=== PATIENT | male | born 1995 | race Caucasian/White ===

== ENCOUNTER 2019-01-09 06:49 | Emergency (ER) | payer BC ==
[2019-01-09] MEDS ORDERED: Sodium Chloride 0.9% 10 ML Syringe FLUSH PRN (07:32)
[2019-01-09] MEDS ORDERED: Famotidine 20 MG/2 ML SDV IVPUSH ONE (07:32)
[2019-01-09] MEDS ORDERED: Sodium Chloride 0.9% 2.5 ML Syringe FLUSH PRN (07:32)
[2019-01-09] MEDS ORDERED: Sodium Chloride 0.9% 1,000 ML IV ONE (07:32)
--- NOTE | 2019-01-09 07:45 | EDM.PDOC ---
ED HPI GENERAL MEDICAL PROBLEM - General Chief Complaint: Gastrointestinal Problem Stated Complaint: POSSIBLE HERNIA, VOMITING, DIARRHEA Time Seen by Provider: 01/09/19 07:07 Source of Information: Reports: Patient History Limitations: Reports: No Limitations - History of Present Illness INITIAL COMMENTS - FREE TEXT/NARRATIVE: History of present illness: []Patient developed epigastric pain over the weekend that has been worsening with vomiting and black diarrhea. Patient denies any fevers, chills has had a chronic cough but denies any shortness of breath or chest pain. Review of systems: As per history of present illness and below otherwise all systems reviewed and negative. Past medical history: As per history of present illness and as reviewed below otherwise noncontributory. Surgical history: As per history of present illness and as reviewed below otherwise noncontributory. Social history: No reported history of drug or alcohol abuse. Family history: As per history of present illness and as reviewed below otherwise noncontributory. Physical exam: General: Well developed, well nourished in NAD HEENT: Atraumatic, normocephalic, pupils reactive, negative for conjunctival pallor or scleral icterus, mucous membranes moist, throat clear, neck supple, nontender, trachea midline. Lungs: Clear to auscultation, breath sounds equal bilaterally, chest nontender. Heart: S1S2, regular, negative for clicks, rubs, or JVD. Abdomen: NABS, Soft, nondistended, epigastric tenderness no rebound or guarding. Negative for masses or hepatosplenomegaly. Negative for costovertebral tenderness. Pelvis: Stable nontender. Genitourinary: Deferred. Rectal: Deferred. Extremities: Atraumatic, negative for cords or calf pain. Neurovascular unremarkable. Neuro: Awake, alert, oriented. Cranial nerves II through XII unremarkable. Cerebellum unremarkable. Motor and sensory unremarkable throughout. Exam nonfocal. Skin:warm and dry Diagnostics: CBC, chemistry, lipase Therapeutics: IV hydration, Pepcid ED Course: sTable Impression: Mild pancreatitis Prescriptions: Zofran Plan: Take Prilosec as directed, follow up with your primary care physician, return to ER if symptoms worsen or change. Definitive disposition and diagnosis as appropriate pending reevaluation and review of above. backpain/epigastric Pain Score (Numeric/FACES): 8 - Related Data Allergies Allergy/AdvReac Type Severity Reaction Status Date / Time Penicillins Allergy Cannot Verified 01/09/19 07:18 Remember Home Meds: Home Meds Ondansetron HCl [Zofran] 4 mg PO Q4HR #12 tablet 01/09/19 [Rx] Past Medical History - Past Health History Medical/Surgical History: Denies Medical/Surgical History Social & Family History - Tobacco Use Years of Tobacco use: 8 Packs/Tins Daily: 1 - Caffeine Use Caffeine Use: Reports: Energy Drinks - Recreational Drug Use Recreational Drug Use: No ED ROS GENERAL - Review of Systems Review Of Systems: ROS reveals no pertinent complaints other than HPI. ED EXAM, GI/ABD - Physical Exam Exam: See Below (See history of present illness) Course - Vital Signs Last Recorded V/S: Last Vital Signs Temp 97.4 F 01/09/19 07:19 Pulse 92 01/09/19 07:19 Resp 16 01/09/19 07:19 BP 137/84 01/09/19 07:19 Pulse Ox 97 01/09/19 07:19 - Orders/Labs/Meds Orders: Active Orders 24 hr Category Date Time Status Sodium Chloride 0.9% [Saline Flush] Med 01/09/19 07:32 Active 10 ml FLUSH ASDIRECTED PRN Sodium Chloride 0.9% [Saline Flush] Med 01/09/19 07:32 Active 2.5 ml FLUSH ASDIRECTED PRN Saline Lock Insert [OM.PC] Stat Oth 01/09/19 07:32 Ordered Medication Orders Sodium Chloride (Saline Flush) 10 ml FLUSH ASDIRECTED PRN PRN Reason: Keep Vein Open Last Admin: 01/09/19 07:46 Dose: 10 ml Sodium Chloride (Saline Flush) 2.5 ml FLUSH ASDIRECTED PRN PRN Reason: Keep Vein Open Last Admin: 01/09/19 07:46 Dose: 2.5 ml Labs: Laboratory Tests 01/09/19 01/09/19 Range/Units 07:45 07:45 WBC 5.99 (4.0-11.0) K/uL RBC 4.90 (4.50-5.90) M/uL Hgb 15.3 (13.0-17.0) g/dL Hct 43.6 (38.0-50.0) % MCV 89.0 (80.0-98.0) fL MCH 31.2 (27.0-32.0) pg MCHC 35.1 (31.0-37.0) g/dL RDW Std Deviation 41.7 (28.0-62.0) fl RDW Coeff of Pillo 13 (11.0-15.0) % Plt Count 252 (150-400) K/uL MPV 10.10 (7.40-12.00) fL Neut % (Auto) 47.7 L (48.0-80.0) % Lymph % (Auto) 37.1 (16.0-40.0) % Allen % (Auto) 10.9 (0.0-15.0) % Eos % (Auto) 4.0 (0.0-7.0) % Baso % (Auto) 0.3 (0.0-1.5) % Neut # (Auto) 2.9 (1.4-5.7) K/uL Lymph # (Auto) 2.2 (0.6-2.4) K/uL Allen # (Auto) 0.7 (0.0-0.8) K/uL Eos # (Auto) 0.2 (0.0-0.7) K/uL Baso # (Auto) 0.0 (0.0-0.1) K/uL Nucleated RBC % 0.0 /100WBC Nucleated RBCs # 0 K/uL Sodium 140 (136-148) mmol/L Potassium 3.4 L (3.5-5.1) mmol/L Chloride 103 (98-107) mmol/L Carbon Dioxide 26.9 (21.0-32.0) mmol/L BUN 10 (7.0-18.0) mg/dL Creatinine 1.0 (0.8-1.3) mg/dL Est Cr Clr Drug Dosing 112.10 mL/min Estimated GFR (MDRD) > 60.0 ml/min Glucose 97 (74-106) mg/dL Calcium 9.1 (8.5-10.1) mg/dL Total Bilirubin 0.6 (0.2-1.0) mg/dL AST 27 (15-37) IU/L ALT 20 (14-63) IU/L Alkaline Phosphatase 58 (46-116) U/L Total Protein 7.6 (6.4-8.2) g/dL Albumin 3.9 (3.4-5.0) g/dL Globulin 3.7 (2.6-4.0) g/dL Albumin/Globulin Ratio 1.1 (0.9-1.6) Lipase 480 H (73-393) U/L Meds: Medications Generic Name Dose Route Start Last Admin Trade Name Freq PRN Reason Stop Dose Admin Sodium Chloride 10 ml 01/09/19 07:32 01/09/19 07:46 Saline Flush FLUSH 10 ml ASDIRECTED PRN Administration Keep Vein Open Sodium Chloride 2.5 ml 01/09/19 07:32 01/09/19 07:46 Saline Flush FLUSH 2.5 ml ASDIRECTED PRN Administration Keep Vein Open Discontinued Medications Generic Name Dose Route Start Last Admin Trade Name Freq PRN Reason Stop Dose Admin Famotidine 20 mg 01/09/19 07:32 01/09/19 07:45 Pepcid IVPUSH 01/09/19 07:33 20 mg ONETIME ONE Administration Sodium Chloride 1,000 mls @ 999 mls/hr 01/09/19 07:32 01/09/19 07:45 Normal Saline IV 01/09/19 08:32 999 mls/hr .Bolus ONE Administration Departure - Departure Time of Disposition: 08:44 Disposition: Home, Self-Care 01 Condition: Good Clinical Impression: Pancreatitis - Discharge Information *PRESCRIPTION DRUG MONITORING PROGRAM REVIEWED*: No *COPY OF PRESCRIPTION DRUG MONITORING REPORT IN PATIENT HETAL: No Prescriptions: Ondansetron HCl [Zofran] 4 mg PO Q4HR #12 tablet Referrals: PCP,None [Primary Care Provider] - Forms: ED Department Discharge Additional Instructions: The following information is given to patients seen in the emergency department who are being discharged to home. This information is to outline your options for follow-up care. We provide all patients seen in our emergency department with a follow-up referral. The need for follow-up, as well as the timing and circumstances, are variable depending upon the specifics of your emergency department visit. If you don't have a primary care physician on staff, we will provide you with a referral. We always advise you to contact your personal physician following an emergency department visit to inform them of the circumstance of the visit and for follow-up with them and/or the need for any referrals to a consulting specialist. The emergency department will also refer you to a specialist when appropriate. This referral assures that you have the opportunity for follow-up care with a specialist. All of these measure are taken in an effort to provide you with optimal care, which includes your follow-up. Under all circumstances we always encourage you to contact your private physician who remains a resource for coordinating your care. When calling for follow-up care, please make the office aware that this follow-up is from your recent emergency room visit. If for any reason you are refused follow-up, please contact the [facility] Emergency Department at and asked to speak to the emergency department charge nurse. Take meds as directed, follow up with your primary care physician, return to ER if symptoms worsen or change. [facility] [address] [place] [id number] - My Orders Last 24 Hours: My Active Orders 01/09/19 07:32 Sodium Chloride 0.9% [Saline Flush] 10 ml FLUSH ASDIRECTED PRN Sodium Chloride 0.9% [Saline Flush] 2.5 ml FLUSH ASDIRECTED PRN Saline Lock Insert [OM.PC] Stat - Assessment/Plan Last 24 Hours: My Active Orders 01/09/19 07:32 Sodium Chloride 0.9% [Saline Flush] 10 ml FLUSH ASDIRECTED PRN Sodium Chloride 0.9% [Saline Flush] 2.5 ml FLUSH ASDIRECTED PRN Saline Lock Insert [OM.PC] Stat
[2019-01-09 08:28] LABS: CHLORIDE,CL 103 mmol/L (98-107); SODIUM,NA 140 mmol/L (136-148)
== END 2019-01-09 09:00 | disposition home or self-care (01) ==
LOC: MW.ED 06:49
DX: K85.90 Acute pancreatitis without necrosis or infection, unspecified (principal); F17.210 Nicotine dependence, cigarettes, uncomplicated; Z88.0 Allergy status to penicillin
CPT/HCPCS: 36415; 80053; 83690; 85025; 96361; 96374; 99284; J3490; J7040; 99283

== ENCOUNTER 2019-02-26 10:43 | Day surgery (SDC) | payer BC ==
[2019-02-26] MEDS ORDERED: Lactated Ringers 1,000 ML IV SCH ×3 (11:00→14:45)
[2019-02-26] MEDS ORDERED: Clindamycin Phosphate in D5W 600 MG in Premix Bag 1 BAG IV ONE ×2 (11:35)
--- NOTE | 2019-02-26 11:56 | PCM.SN ---
- Free Text/Narrative Note: pt seen, chart reviewed; trauma injury to L 4 th toe, or for revision amputation ; rb dw pt, pt concurred; proceed w surgery; [id number]
[2019-02-26] MEDS ORDERED: Sodium Chloride 0.9% 10 ML SDV IV PRN (12:02)
[2019-02-26] MEDS ORDERED: Sodium Chloride 0.9% 10 ML Syringe FLUSH PRN (12:02)
[2019-02-26] MEDS ORDERED: Sodium Chloride 0.9% 2.5 ML Syringe FLUSH PRN (12:02)
--- NOTE | 2019-02-26 12:02 | PCM.SN ---
- Free Text/Narrative Note: upon discharge, pt would be NWB on L foot, crutch walking, no sock, no shoe, only sandles X 2 weeks
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
[2019-02-26] MEDS ORDERED: Bupivacaine 0.25% 10 ML SDV ONE (12:24)
[2019-02-26 12:44] LABS: CHLORIDE,CL 106 mmol/L (98-107); SODIUM,NA 145 mmol/L (136-148)
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
[2019-02-26] MEDS ORDERED: Midazolam 1 MG/ML 2 ML SDV ONE (13:33)
--- NOTE | 2019-02-26 13:59 | PCM.PREANE ---
Preanesthetic Assessment - Anesthesia/Transfusion/Family Hx Anesthesia History: No Prior Anesthesia Family History of Anesthesia Reaction: No Transfusion History: No Prior Transfusion(s) - Review of Systems General: No Symptoms Pulmonary: No Symptoms Cardiovascular: No Symptoms Gastrointestinal: No Symptoms Neurological: Other (acute alcohol intoxication) Other: Reports: None - Physical Assessment NPO Status Date: 02/26/19 NPO Status Time: 05:00 O2 Sat by Pulse Oximetry: 96 Respiratory Rate: 20 Vital Signs: Last Vital Signs Temp 98.6 F 02/26/19 11:22 Pulse 98 02/26/19 11:22 Resp 20 02/26/19 11:22 BP 130/67 02/26/19 11:22 Pulse Ox 96 02/26/19 11:22 Height: 5 ft 8 in Weight: 77.519 kg ASA Class: 2E Mental Status: Alert & Oriented x3 Airway Class: Mallampati = 1 Dentition: Reports: Normal Dentition Thyro-Mental Finger Breadths: 3 Mouth Opening Finger Breadths: 3 ROM/Head Extension: Full Lungs: Clear to Auscultation, Normal Respiratory Effort Cardiovascular: Regular Rate, Regular Rhythm - Lab Values: Laboratory Last Values WBC 7.25 K/uL (4.0-11.0) 02/26/19 12:10 RBC 5.11 M/uL (4.50-5.90) 02/26/19 12:10 Hgb 16.3 g/dL (13.0-17.0) 02/26/19 12:10 Hct 45.9 % (38.0-50.0) 02/26/19 12:10 MCV 89.8 fL (80.0-98.0) 02/26/19 12:10 MCH 31.9 pg (27.0-32.0) 02/26/19 12:10 MCHC 35.5 g/dL (31.0-37.0) 02/26/19 12:10 RDW Std Deviation 42.3 fl (28.0-62.0) 02/26/19 12:10 RDW Coeff of Pillo 13 % (11.0-15.0) 02/26/19 12:10 Plt Count 340 K/uL (150-400) 02/26/19 12:10 MPV 9.80 fL (7.40-12.00) 02/26/19 12:10 Nucleated RBC % 0.0 /100WBC 02/26/19 12:10 Nucleated RBCs # 0 K/uL 02/26/19 12:10 Sodium 145 mmol/L (136-148) 02/26/19 12:10 Potassium 4.2 mmol/L (3.5-5.1) 02/26/19 12:10 Chloride 106 mmol/L (98-107) 02/26/19 12:10 Carbon Dioxide 25.7 mmol/L (21.0-32.0) 02/26/19 12:10 BUN 9 mg/dL (7.0-18.0) 02/26/19 12:10 Creatinine 1.1 mg/dL (0.8-1.3) 02/26/19 12:10 Est Cr Clr Drug Dosing 101.91 mL/min 02/26/19 12:10 Estimated GFR (MDRD) > 60.0 ml/min 02/26/19 12:10 Glucose 112 mg/dL (74-106) H 02/26/19 12:10 Calcium 8.9 mg/dL (8.5-10.1) 02/26/19 12:10 Ethyl Alcohol 144 mg/dL 02/26/19 12:10 - Allergies Allergies/Adverse Reactions: Allergies Allergy/AdvReac Type Severity Reaction Status Date / Time Penicillins Allergy Cannot Verified 02/26/19 11:27 Remember - Anesthesia Plan Free Text/Narrative:: Pt states he has been on a 3 day 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 No labs were able to be obtained from [facility]. Hemogram, BMP, and Alcohol level were drawn. Patients last PO alcohol intake was around 0400 this AM. Labs show current alcohol level 144. Pt is extremely nervous about going to sleep. Spinal anesthesia was explained and the patient agrees to proceed at this time. - Acknowledgements Anesthesia Type Planned: General Anesthesia, Spinal Pt an Appropriate Candidate for the Planned Anesthesia: Yes Alternatives and Risks of Anesthesia Discussed w Pt/Guardian: Yes Pt/Guardian Understands and Agrees with Anesthesia Plan: Yes PreAnesthesia Questionnaire - Past Health History Medical/Surgical History: Denies Medical/Surgical History HEENT History: Reports: None Cardiovascular History: Reports: None Respiratory History: Reports: Other (See Below) Other Respiratory History: Patient states every now and then he gets short of breath. Gastrointestinal History: Reports: None Genitourinary History: Reports: None Musculoskeletal History: Reports: Other (See Below) (Lt 4th toe traumatic amputation) Neurological History: Reports: None Psychiatric History: Reports: Anxiety Endocrine/Metabolic History: Reports: None Hematologic History: Reports: None Immunologic History: Reports: None Oncologic (Cancer) History: Reports: None Dermatologic History: Reports: None - Infectious Disease History Infectious Disease History: Reports: Mononucleosis - SUBSTANCE USE Tobacco Use Within Last Twelve Months: Snuff/Dip Second Hand Smoke Exposure: Yes Days Per Week of Alcohol Use: 1 Number of Drinks Per Day: 2 Total Drinks Per Week: 2 Recreational Drug Use History: No - HOME MEDS Home Medications: Home Meds . [No Known Home Meds] 02/26/19 [History] - CURRENT (IN HOUSE) MEDS Current Meds: Current Medications Lactated Ringer's (Ringers, Lactated) 1,000 mls @ 150 mls/hr IV ASDIRECTED FAISAL Last Admin: 02/26/19 11:36 Dose: 150 mls/hr Lactated Ringer's (Ringers, Lactated) 1,000 mls @ 150 mls/hr IV ASDIRECTED FAISAL Sodium Chloride (Saline Flush) 10 ml FLUSH ASDIRECTED PRN PRN Reason: Keep Vein Open Sodium Chloride (Saline Flush) 2.5 ml FLUSH ASDIRECTED PRN PRN Reason: Keep Vein Open Sodium Chloride (Normal Saline) 10 ml IV ASDIRECTED PRN PRN Reason: IV Use Discontinued Medications Bupivacaine HCl (Sensorcaine-Mpf 0.25%) Confirm Administered Dose 10 ml .ROUTE .STK-MED ONE Stop: 02/26/19 12:25 Clindamycin Phosphate 600 mg/ (Premix) 50 mls @ 100 mls/hr IV ONETIME ONE Stop: 02/26/19 12:04 Last Admin: 02/26/19 11:39 Dose: 100 mls/hr Midazolam HCl (Versed 1 Mg/Ml) Confirm Administered Dose 2 mg .ROUTE .STK-MED ONE Stop: 02/26/19 13:34
--- NOTE | 2019-02-26 14:27 | PCM.SN ---
- Free Text/Narrative Note: revision amputation to L 4th DIP joint; [id number]
--- NOTE | 2019-02-26 14:37 | PCM.OPNOTE ---
- General Post-Op/Procedure Note Date of Surgery/Procedure: 02/26/19 Operative Procedure(s): revision amputation to L 4th DIP joint toe Findings: revision amputation to L 4th toe at DIP joint, [id number] Pre Op Diagnosis: trauma injury to L 4 th toe Post-Op Diagnosis: Same Anesthesia Technique: Combo Spinal/Epidural Primary Surgeon: Saul Mercer Pathology: sent Complications: None Condition: Good Free Text/Narrative:: Intake & Output 02/25/19 02/26/19 02/26/19 22:59 06:59 14:59 Intake Total 50 Balance 50
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
--- NOTE | 2019-02-26 14:44 | PCM.POSTAN ---
POST ANESTHESIA ASSESSMENT - MENTAL STATUS Mental Status: Alert, Oriented - VITAL SIGNS Pulse Rate: 86 SaO2: 98 (RA) Resp Rate: 14 Blood Pressure: 107/68 - RESPIRATORY Respiratory Status: Respiratory Rate WNL, Airway Patent, O2 Saturation Stable - CARDIOVASCULAR CV Status: Pulse Rate WNL, Blood Pressure Stable - GASTROINTESTINAL GI Status: No Symptoms - PAIN Pain Score: 0 - POST OP HYDRATION Hydration Status: Adequate & Stable
--- NOTE | 2019-02-26 14:55 | OR ---
SURGEON: Saul Mercer MD DATE OF PROCEDURE: 02/26/2019 PREOPERATIVE DIAGNOSIS: Trauma injury to the left 4th toe. POSTOPERATIVE DIAGNOSIS: Trauma injury to the left 4th toe. PROCEDURE PERFORMED: Revision amputation of left 4th toe. PRIMARY SURGEON: Saul Mercer MD. COMPLICATIONS: None. FINDINGS: The distal phalanx looked like is broken into two pieces and it was removed at the DIP joint and it was then closed with a fish-mouth incision. PROCEDURE IN DETAIL: The patient was taken to operating room, placed in a supine position. Upon induction of spinal anesthesia, the patient's left lower extremity prepped and draped in sterile fashion. Time-out was being called, patient identified, antibiotic identified, procedure then started. A fish-mouth incision was made and developed a medial flap and a lateral flap and bone was removed all the way to the DIP joint and it was then closed with simple interrupted using 3-0 Ethilon followed by appropriate dressing. The patient was then transferred to recovery in hemodynamically stable condition. The patient tolerated the procedure well. There were no intraoperative complications. Dr. Mercer was present throughout procedure. JENNIFER / ANDREW /[id number] KIRA
[2019-02-26] MEDS: Lactated Ringers 1,000 ML IV SCH (15:00)
[2019-02-26] MEDS: Clindamycin Phosphate in D5W 300 MG in Premix Bag 1 BAG IV SCH ×4 (17:06→23:35)
[2019-02-26] MEDS: Acetaminophen/oxyCODONE 325-5 MG Tab PO PRN (21:56)
[2019-02-27] MEDS: Lactated Ringers 1,000 ML IV SCH (01:57)
[2019-02-27] MEDS: Acetaminophen/oxyCODONE 325-5 MG Tab PO PRN ×2 (01:59→07:47)
[2019-02-27] MEDS: Clindamycin Phosphate in D5W 300 MG in Premix Bag 1 BAG IV SCH ×2 (05:19)
--- NOTE | 2019-02-27 09:29 | PCM48HPAN ---
Post Anesthesia Note - EVALUATION WITHIN 48HRS OF ANESTHETIC Vital Signs in Normal Range: Yes Patient Participated in Evaluation: Yes Respiratory Function Stable: Yes Airway Patent: Yes Cardiovascular Function Stable: Yes Hydration Status Stable: Yes Pain Control Satisfactory: Yes Nausea and Vomiting Control Satisfactory: Yes Mental Status Recovered: Yes Pulse Rate: 80 SaO2: 97 Resp Rate: 17 Blood Pressure: 150/67
--- NOTE | 2019-02-27 10:49 | PCM.SURGPN ---
- General Info Date of Service: 02/27/19 Functional Status: Reports: Pain Controlled (pt voided, pain in good control, jhony po diet, pt taught crutch walking) - Review of Systems General: Reports: No Symptoms - Patient Data Vitals - Most Recent: Last Vital Signs Temp 97.8 F 02/27/19 07:16 Pulse 80 02/27/19 09:29 Resp 17 02/27/19 09:29 BP 150/67 H 02/27/19 09:29 Pulse Ox 97 02/27/19 09:29 Weight - Most Recent: 170 lb 14.4 oz I&O - Last 24 Hours: Intake & Output 02/26/19 02/27/19 02/27/19 22:59 06:59 14:59 Intake Total 724 2086 Output Total 1250 Balance 724 836 Lab Results Last 24 Hrs: Laboratory Results - last 24 hr 02/26/19 02/26/19 Range/Units 12:10 12:10 WBC 7.25 (4.0-11.0) K/uL RBC 5.11 (4.50-5.90) M/uL Hgb 16.3 (13.0-17.0) g/dL Hct 45.9 (38.0-50.0) % MCV 89.8 (80.0-98.0) fL MCH 31.9 (27.0-32.0) pg MCHC 35.5 (31.0-37.0) g/dL RDW Std Deviation 42.3 (28.0-62.0) fl RDW Coeff of Pillo 13 (11.0-15.0) % Plt Count 340 (150-400) K/uL MPV 9.80 (7.40-12.00) fL Nucleated RBC % 0.0 /100WBC Nucleated RBCs # 0 K/uL Sodium 145 (136-148) mmol/L Potassium 4.2 (3.5-5.1) mmol/L Chloride 106 (98-107) mmol/L Carbon Dioxide 25.7 (21.0-32.0) mmol/L BUN 9 (7.0-18.0) mg/dL Creatinine 1.1 (0.8-1.3) mg/dL Est Cr Clr Drug Dosing 101.91 mL/min Estimated GFR (MDRD) > 60.0 ml/min Glucose 112 H (74-106) mg/dL Calcium 8.9 (8.5-10.1) mg/dL Ethyl Alcohol 144 mg/dL Med Orders - Current: Current Medications Clindamycin Phosphate 300 mg/ (Premix) 50 mls @ 150 mls/hr IV Q6H [facility] Last Admin: 02/27/19 05:19 Dose: 150 mls/hr Lactated Ringer's (Ringers, Lactated) 1,000 mls @ 100 mls/hr IV ASDIRECTED [facility] Last Admin: 02/27/19 01:57 Dose: 100 mls/hr Oxycodone/Acetaminophen (Percocet 325-5 Mg) 1 tab PO Q4H PRN PRN Reason: Pain Last Admin: 02/27/19 07:47 Dose: 1 tab Sodium Chloride (Saline Flush) 10 ml FLUSH ASDIRECTED PRN PRN Reason: Keep Vein Open Sodium Chloride (Saline Flush) 2.5 ml FLUSH ASDIRECTED PRN PRN Reason: Keep Vein Open Sodium Chloride (Normal Saline) 10 ml IV ASDIRECTED PRN PRN Reason: IV Use Discontinued Medications Bupivacaine HCl (Sensorcaine-Mpf 0.25%) Confirm Administered Dose 10 ml .ROUTE .STK-MED ONE Stop: 02/26/19 12:25 Lactated Ringer's (Ringers, Lactated) 1,000 mls @ 150 mls/hr IV ASDIRECTED [facility] Last Admin: 02/26/19 11:36 Dose: 150 mls/hr Clindamycin Phosphate 600 mg/ (Premix) 50 mls @ 100 mls/hr IV ONETIME ONE Stop: 02/26/19 12:04 Last Admin: 02/26/19 11:39 Dose: 100 mls/hr Lactated Ringer's (Ringers, Lactated) 1,000 mls @ 150 mls/hr IV ASDIRECTED [facility] Lactated Ringer's (Ringers, Lactated) 1,000 mls @ 100 mls/hr IV ASDIRECTED [facility] Midazolam HCl (Versed 1 Mg/Ml) Confirm Administered Dose 2 mg .ROUTE .STK-MED ONE Stop: 02/26/19 13:34 - Exam Wound/Incisions: Dressing Dry and Intact - Problem List Review Problem List Initiated/Reviewed/Updated: Yes - My Orders Last 24 Hours: Active Orders 24 hr Category Date Time Status Admission Status [Patient Status] [ADT] Routine ADT 02/26/19 11:58 Active Communication Order [RC] ROUTINE Care 02/26/19 14:28 Active Communication Order [RC] ROUTINE Care 02/26/19 14:30 Active Ready for Discharge [RC] PER UNIT ROUTINE Care 02/27/19 10:47 Ordered Consult to Physical Therapy [PT Evaluation and Cons 02/27/19 09:39 Active Treatment] [CONS] Routine Regular Diet [DIET] Diet 02/26/19 Dinner Active Acetaminophen/oxyCODONE [Percocet 325-5 MG] Med 02/26/19 14:31 Active 1 tab PO Q4H PRN Clindamycin Phosphate in D5W [Cleocin in D5W] 300 mg Med 02/26/19 17:40 Active Premix Bag 1 bag IV Q6H Lactated Ringers [Ringers, Lactated] 1,000 ml Med 02/26/19 14:45 Active IV ASDIRECTED Sodium Chloride 0.9% [Normal Saline] Med 02/26/19 12:02 Active 10 ml IV ASDIRECTED PRN Sodium Chloride 0.9% [Saline Flush] Med 02/26/19 12:02 Active 10 ml FLUSH ASDIRECTED PRN Sodium Chloride 0.9% [Saline Flush] Med 02/26/19 12:02 Active 2.5 ml FLUSH ASDIRECTED PRN Medication Administration Instruction [OM.PC] Routine Oth 02/26/19 12:02 Ordered Peripheral IV Insertion Adult [OM.PC] Routine Oth 02/26/19 12:02 Ordered Medication Orders Clindamycin Phosphate 300 mg/ (Premix) 50 mls @ 150 mls/hr IV Q6H [facility] Last Admin: 02/27/19 05:19 Dose: 150 mls/hr Infusion: 02/26/19 23:55 Dose: 150 mls/hr Admin: 02/26/19 23:35 Dose: 150 mls/hr Infusion: 02/26/19 17:26 Dose: 150 mls/hr Admin: 02/26/19 17:06 Dose: 150 mls/hr Lactated Ringer's (Ringers, Lactated) 1,000 mls @ 100 mls/hr IV ASDIRECTED [facility] Last Admin: 02/27/19 01:57 Dose: 100 mls/hr Infusion: 02/27/19 01:00 Dose: 100 mls/hr Admin: 02/26/19 15:00 Dose: 100 mls/hr Oxycodone/Acetaminophen (Percocet 325-5 Mg) 1 tab PO Q4H PRN PRN Reason: Pain Last Admin: 02/27/19 07:47 Dose: 1 tab Admin: 02/27/19 01:59 Dose: 1 tab Admin: 02/26/19 21:56 Dose: 1 tab Sodium Chloride (Saline Flush) 10 ml FLUSH ASDIRECTED PRN PRN Reason: Keep Vein Open Sodium Chloride (Saline Flush) 2.5 ml FLUSH ASDIRECTED PRN PRN Reason: Keep Vein Open Sodium Chloride (Normal Saline) 10 ml IV ASDIRECTED PRN PRN Reason: IV Use - Assessment Assessment (Free Text/Narrative):: home on pain/abx; fu wednesday - Plan Plan (Free Text/Narrative):: home on pain/abx; fu wednesday
== END 2019-02-27 11:19 | disposition home or self-care (01) ==
LOC: MW.SDS 10:43 → MW.MS 10:44 → MW.SDS 02-27 11:19
PROVIDERS: ATTEND Surgery
DX: S98.142A Partial traumatic amputation of one left lesser toe, initial encounter (principal); F10.10 Alcohol abuse, uncomplicated; Y90.6 Blood alcohol level of 120-199 mg/100 ml; F41.9 Anxiety disorder, unspecified; F17.220 Nicotine dependence, chewing tobacco, uncomplicated; Z88.0 Allergy status to penicillin
CPT/HCPCS: 28825; 36415; 73620; 80048; 85027; 88302; 97161; A4217; A9270; G0480; J2250; J3490; J7120; 01480